=== PATIENT | female | born 1960 | race Caucasian/White ===

== ENCOUNTER 2020-10-09 09:03 | Emergency (ER) | payer BC, SELFPAY ==
--- NOTE | ~2020-10-09 | XR_ITS ---
EXAMINATION: XR FOOT, LEFT CLINICAL INFORMATION: Subacute 3rd, 4th, 5th toe injury. COMPARISON: None. TECHNIQUE: AP, lateral, and oblique views of the left foot. FINDINGS: Marker positioned at the 5th toe. There is mild articular surface irregularity of the distal articular surface with relative lucency in the distal aspect of the 1st proximal phalanx, with subtle periosteal changes along the lateral distal cortex, which could represent sequela of subacute injury. No acute fracture plane is otherwise identified. Mild soft tissue swelling of the 5th digit. No acute fracture is otherwise seen. Calcaneal spurring. XR/XR foot LT 2V IMPRESSION: Findings in the distal aspect of the 1st proximal phalanx, including involving the articular surface, and subtle periosteal changes, could represent sequela of fracture. The appearance is suggestive of a subacute injury. Please clinically correlate. No discrete acute fracture plane is otherwise identified
[2020-10-09 09:32] VITALS: BP 128/70; PULSE 78; RESP 18; TEMP 36.1; O2SAT 98; BMI 31.6
--- NOTE | 2020-10-09 10:40 | ED_ITS ---
HPI - Extremity Injury (Lower) General Chief Complaint: Extremity Injury, Lower Stated Complaint: toe injury Time Seen by Provider: 10/09/20 09:31 History of Present Illness HPI Narrative: Patient complains of left 3 4 and 5 toe pain after accidentally banging her foot into the wall at home several days ago It is very hard to put on her work boot and to be on her feet for the long shifts Denies any numbness or weakness, no other injury Related Data Allergies Allergy/AdvReac Type Severity Reaction Status Date / Time Penicillins Allergy Rash Verified 10/09/20 09:34 Review of Systems Review of Systems: Positive for toe pain Negatives are no fever no chills no dizziness no weakness no headache no neck pain no back pain no skin rash no numbness weakness or tingling PMFSH Past Medical History Source: nursing notes reviewed Medical History (Updated 10/09/20 @ 10:44 by JASPAL Leone) Hiatal hernia Social History Social History Advance Directives: No Advance Directives Information Provided: No Physical Exam Vital Signs: Vital Signs: Last Vital Signs Temp 97.0 F 10/09/20 09:32 Pulse 78 10/09/20 09:32 Resp 18 10/09/20 09:32 BP 128/70 10/09/20 09:32 Pulse Ox 98 10/09/20 09:32 Body Mass Index 31.6 General appearance no acute distress, calm cooperative and O x3 Head is normocephalic atraumatic Neck is supple Respiratory no distress The left foot has tenderness mostly over the left pinky toe and there is more mild tenderness over left 3rd and 4th toes, there is full range of motion there is no ecchymosis no deformity no swelling it is neurovascular intact, tendon function is normal no redness or warmth no break in the skin, skin appearance is normal no wounds Course Course Course Narrative: X-rays were negative, patient is given a work note and referral to firepot operator and tender if it does not get better Discharge Plan Discharge Clinical Impression: Contusion of toe of left foot Qualifiers: Encounter type: initial encounter Toe: lesser toe Damage to nail status: without damage Qualified Code(s): S90.122A - Contusion of left lesser toe(s) without damage to nail, initial encounter Patient Disposition: Home, Self-Care Additional Instructions: X-ray did not show any broken bone Follow with firepot operator and tender or orthopedist as needed if not better in a week Return any concerns Referrals: Mary Daniel MD [Physician] - 2 days Stephen Clay [Physician] - 2 days Stand Alone Forms: Work/School Release Interventions: ED Discharge Assessment Last Done: 10/09/20 10:47 Discharge Date/Time: 10/09/20 10:48
== END 2020-10-09 10:48 | disposition home or self-care (01) ==
PROVIDERS: Emergency Provider Emergency Medicine; PCP Internal Medicine
DX: S90.122A Contusion of left lesser toe(s) without damage to nail, initial encounter (principal); W22.01XA Walked into wall, initial encounter; Y93.01 Activity, walking, marching and hiking; Y92.039 Unspecified place in apartment as the place of occurrence of the external cause; Y99.9 Unspecified external cause status
CPT/HCPCS: 73620; 99283

== ENCOUNTER → 2020-10-31 13:56 | Outpatient (BNVA) | payer BC, SELFPAY | PROVIDERS: PCP Internal Medicine; Visit Provider Internal Medicine Pulmonary Disease ==